=== PATIENT | male | born 1945 | race Caucasian/White ===

== ENCOUNTER → 2020-11-19 | Outpatient (CLI) | payer BC, MEDICARE ==
[2020-11-19 16:34] LABS: Appearance,Urine Clear (Clear); Bilirubin,Urine Negative (Negative); Blood,Urine Negative (Negative); Color,Urine Light Yellow; Glucose,Urine (UA) Negative (Negative); HCT 46.5 % (39.0-53.0); HGB 15.9 gm/dL (13.0-17.5); Ketones,Urine Negative (Negative); Leukocyte Esterase,Urine Negative (Negative); MCH 30.4 pg (25.0-35.0); MCHC 34.1 g/dL (31.0-37.0); MCV 89.3 fL (80.0-100.0); Mean Platelet Volume 8.7; Nitrite,Urine Negative (Negative); PH, Urine 5.5 (5.0-8.0); Platelet Count 190 k/uL (150-450); Protein,Urine Negative (Negative); RBC 5.21 m/uL (4.30-5.90); RDW 13.1 % (11.5-15.5); Specific Gravity,Urine 1.008 (1.001-1.035); Urobilinogen,Urine <2.0 mg/dL (<2.0); WBC 9.1 k/uL (3.8-10.6)
[2020-11-19 16:43] LABS: Albumin 4.8 g/dL (3.5-5.0); Calcium 9.9 mg/dL (8.4-10.2); Partial Thromboplastin Time 25.1 sec (22.0-30.0); Potassium 4.5 mmol/L (3.5-5.1); Prothrombin Time 10.4 sec (9.0-12.0); Total Bilirubin 0.3 mg/dL (0.2-1.3); Total Protein 7.7 g/dL (6.3-8.2)
== END | disposition home or self-care (01) ==
LOC: LABPAT 16:01
PROVIDERS: ATTEND Orthopaedic Surgery
DX: Z01.818 Encounter for other preprocedural examination (principal); Z01.812 Encounter for preprocedural laboratory examination
CPT/HCPCS: 80053; 81003; 85027; 85610; 85730; 86850; 86900; 86901; 87070; 93005

== ENCOUNTER 2020-11-30 13:21 | Day surgery (SDC) | payer MEDICARE, BC ==
[2020-11-24 14:02] VITALS: BMI 27.2
[~2020-11-30 13:21] MED LIST: ACETAMINOPHEN TAB 500 MG TAB PO PRN; DEXAMETHASONE SOD PHOSPHATE 4 MG/ML 1 ML VIAL IV ONE; GABAPENTIN 300 MG CAP PO PRN; HYDROcodone/APAP 7.5-325MG 1 EACH TAB PO PRN; HYDROmorphone 0.2 MG/1 ML SYRINGE IVP PRN; HYDROmorphone 0.5 MG/0.5 ML SYRINGE IVP PRN; LACTATED RINGERS 1,000 ML IV SCH; MAGNESIUM HYDROXIDE 2,400 MG/10 ML CUP PO PRN; MELOXICAM 7.5 MG TAB PO PRN; MIDAZOLAM 2 MG/2 ML VIAL IV PRN; NALOXONE 0.4 MG/ML 1 ML VIAL IV PRN; ONDANSETRON 4 MG/2 ML VIAL IVP ONE; ONDANSETRON 4 MG/2 ML VIAL IVP PRN; ROPIVACAINE/EPI/CLONIDINE/KET 50 ML SYRINGE MISCELLANE PRN; SODIUM CHLORIDE 0.9% 1,000 ML IV SCH; TRANEXAMIC ACID 1,000 MG in SODIUM CHLORIDE 0.9% 100 ML IVPB PRN; fentaNYL (PF) 50 MCG/ML 2 ML AMP IV PRN
[2020-11-30] MEDS ORDERED: ACETAMINOPHEN TAB 500 MG TAB ONE (13:58)
[2020-11-30 14:04] LABS: Glucose,Whole Blood 113 mg/dL (75-99)
[2020-11-30] MEDS ORDERED: HEPARIN SODIUM,PORCINE 10,000 UNIT/ML 1 ML VIAL ONE (15:19)
[2020-11-30] MEDS ORDERED: MIDAZOLAM 2 MG/2 ML VIAL ONE (15:19)
[2020-11-30] MEDS ORDERED: SODIUM CHLORIDE 0.9% 100 ML BAG ONE (15:19)
[2020-11-30] MEDS ORDERED: PROPOFOL 10 MG/ML 20 ML VIAL IV ONE (15:19)
[2020-11-30] MEDS ORDERED: SODIUM CHLORIDE 0.9% IRRIG 1,000 ML BTL IRRIGATION ONE (15:19)
[2020-11-30] MEDS ORDERED: TRANEXAMIC ACID 1,000 MG/10 ML VIAL ONE (15:19)
[2020-11-30] MEDS ORDERED: fentaNYL (PF) 50 MCG/ML 2 ML AMP ONE (15:19)
--- NOTE | 2020-11-30 16:42 | P.OP ---
Date of Procedure: 11/30/20 Preoperative Diagnosis: Severe osteoarthritis left hip Postoperative Diagnosis: Severe osteoarthritis left hip Procedure(s) Performed: Total hip arthroplasty with a direct anterior approach Implants: [employer] Polarstem standard size 7 [employer] R3, 3 hole hemispherical acetabular shell, 54 mm [employer] Reflection 6.5 mm cancellus screw, 20 mm 2 [employer] R3, XLPE 20 acetabular liner [employer] Oxinium femoral head 36 m, -3 All components were press-fit. The articulation is Oxinium on polyethylene. Anesthesia: spinal Surgeon: Jak Dowell Windows Systems Engineer #1: Kari Martins Estimated Blood Loss (ml): 100 Pathology: other (Femoral head) Condition: stable Disposition: PACU Indications for Procedure: After failure of conservative treatment we discussed the surgical and nonsurgical treatment options at length. Patient wishes to proceed with a total hip arthroplasty with a direct anterior approach. Complications specific to this procedure were discussed at length, including but not limited to infection, leg length discrepancy, dislocation, nerve injury, and fracture. Covid-19 was also discussed at length with the patient, and they are aware of the current policies and procedures. The patient was given the option of delaying surgery, but they elect to proceed knowing these risks. Patient is aware of all these complications and informed consent was obtained Operative Findings: The operative findings are consistent with severe osteoarthritis of the left hip Description of Procedure: Patient was seen and evaluated in the preoperative area and the consent was reviewed. The operative site was marked with a skin marker. The patient was then brought to the operating room and given preoperative antibiotics intrave nously. 1 g of Tranexamic acid was also given intravenously. A spinal anesthetic was administered by the anesthesia department. The patient was then placed on the Musella table with the bony prominences well-padded. The hip area was then prepped with a ChloraPrep solution and draped in the usual sterile fashion. A universal timeout was then performed, which confirmed the patient's name, surgical site, ALLERGIES, and procedure being performed on the consent. Next the incision site was located at 1 cm distal to the anterior superior iliac spine along the flexion crease of the left hip. The skin and subcutaneous tissues were sharply incised. Incision was carefully dissected down to the fascia overlying the tensor fascia oneal muscle. This fascia was then incised in line with the incision. Care was taken to stay laterally in order to avoid injuring the lateral femoral cutaneous nerve. Next, using blunt finger dissection, the tensor fascia oneal muscle was dissected off its investing fascia. The muscle was then carefully retracted laterally with a cobra retractor over the lateral neck of the femur. Next, the circumflex vessels were identified and cauterized using the AquaMantis device. The anterior hip capsule was then exposed. The capsule was then opened and an inverted T fashion. Cobra retractors were then placed intracapsularly. The retractors were maintained intracapsular throughout the procedure. The proximal femur was then visualized. A small amount of traction was placed on the leg. The femoral neck was then osteotomized appropriate level above the lesser trochanter. A small wedge of bone was then removed from the remaining femoral head. Next, using a corkscrew the femoral head was removed from the acetabulum. On gross visual inspection, the femoral head had complete loss of articular cartilage and multiple periarticular osteophytes. The femoral head was then measured. Attention was then turned to the acetabulum. The acetabulum was exposed and any remaining labrum was excised. Sequential reaming of the acetabulum was performed using fluoroscopic guidance until there was a good bed of bleeding cancellus bone. When the appropriate size was reached, a trial was then placed. The position and fit of the trial was checked with fluoroscopy. The trial was then removed. Then, using fluoroscopic guidance, the final implant was impacted at 20 of anteversion and 40 of abduction, and fully seated in the acetabulum. 2 screws were then placed in the acetabulum. Again fluoroscopy was used to check position of the screws. Next, the liner was then impacted, with a 20 elevated liner located in the anterior superior quadrant. Component locking was confirmed. Attention was then directed to the femur. With the aid of the Musella table, the femur was externally rotated to approximately 130, extended, and adducted under the opposite leg. A side hook was then placed under the proximal femur, and the side hook elevator was used to elevate the proximal femur while releasing the capsule. Retractors were then placed. A capsular release was performed, as well as a release of the conjoined tendon, which afforded excellent visualizatio n of the proximal femur. Next, a box osteotome was used to lateralize the proximal femur. A pattern hand was then used to locate the femoral canal. Sequential broaching was then performed with appropriate size which afforded excellent fixation in the proximal femur. A trial was then placed with appropriate head and neck, and the hip was gently reduced with the aid of the Musella table. Fluoroscopy was then used to check position of the components, as well as to ensure equal leg lengths. The hip was then gently dislocated and the trials were then removed. Final implants were then impacted and the hip was again reduced. Final fluoroscopic x-rays confirmed that the components were in anatomic position, as well as equal leg lengths. The hip was also taken through range of motion, and found to be stable. The hip was then copiously irrigated with antibiotic solution with pulsatile lavage. The hip was then irrigated with Irrisept solution. The soft tissues were then injected with a ropivacaine solution, which consisted of 246.25 mg of ropivacaine, 0.5 mg of epinephrine, 30 mg of Toradol, 80 g of clonidine, and 48.45 mL of sterile water, for a total of 100 mL of fluid injected. A second dose of 1 g of Tranexamic acid was also given intravenously. Any blood collected by Cell Saver was then returned to the patient at this time. The fascia was then closed with 2-0 strata fix suture. The subcutaneous tissue was closed with 3-0 Vicryl. The subcuticular tissue was closed with 3-0 strata fix suture. The skin was then closed with Exofin skin glue. After the glue and dried, and Optifoam silver impregnated dressing was applied. The patient was then transferred to the recovery room in stable condition. The phlebotomist lab assistant YESICA Grewal was required due to the complexity of surgery, and the need for skilled surgical instrument maker for positioning, draping, exposure, retraction, and closure of the wound.
[2020-11-30 17:19] LABS: Glucose,Whole Blood 166 mg/dL (75-99)
--- NOTE | 2020-11-30 18:23 | XR ---
EXAMINATION TYPE: XR Hip Limited LT DATE OF EXAM: 11/30/2020 COMPARISON: NONE HISTORY: Postop hip surgery TECHNIQUE: Single view FINDINGS: There is left hip prosthesis. Components are in anatomic position. IMPRESSION: No complicating process seen.
--- NOTE | 2020-11-30 18:38 | FL ---
EXAMINATION TYPE: FL guidance operating room DATE OF EXAM: 11/30/2020 FLUOROSCOPY Fluoroscopy time of 18 seconds was used during left hip total arthroplasty.. 2 image/s document/s th e procedure.
--- NOTE | 2020-11-30 18:42 | XR ---
EXAMINATION TYPE: XR Hip Limited LT DATE OF EXAM: 11/30/2020 FLUOROSCOPY Fluoroscopy time of 22 seconds was used during left hip total arthroplasty. 2 image/s document/s the procedure.
[2020-11-30] MEDS ORDERED: LACTATED RINGERS 1,000 ML IV ONE (20:21)
[2020-11-30 20:44] LABS: Glucose,Whole Blood 309 mg/dL (75-99)
[2020-11-30] MEDS ORDERED: INSULIN ASPART (NovoLOG) 100 UNIT/ML VIAL SQ ONE (20:55)
[2020-11-30 22:20] LABS: Glucose,Whole Blood 264 mg/dL (75-99)
[2020-11-30] MEDS: ASPIRIN 325 MG TAB PO SCH (23:50)
[2020-12-01] MEDS ORDERED: SENNOSIDES-DOCUSATE SODIUM 1 EACH TAB PO SCH
[2020-12-01 00:02] VITALS: RESP 20
[2020-12-01 05:44] VITALS: BP 136/62; PULSE 59; TEMP 98
[2020-12-01 05:55] LABS: Basophils % (A) 0 %; Eosinophils % (A) 0 %; HCT 42.6 % (39.0-53.0); Lymphocytes # (A) 1.1 k/uL (1.0-4.8); Lymphocytes % (A) 7 %; MCH 29.3 pg (25.0-35.0); MCHC 32.9 g/dL (31.0-37.0); MCV 89.1 fL (80.0-100.0); Monocytes # (A) 1.1 k/uL (0-1.0); Monocytes % (A) 7 %; Neutrophils # (A) 14.2 k/uL (1.3-7.7); Neutrophils % (A) 86 %; Platelet Count 221 k/uL (150-450); RBC 4.78 m/uL (4.30-5.90); RDW 13.5 % (11.5-15.5); WBC 16.6 k/uL (3.8-10.6)
[2020-12-01 07:06] LABS: Glucose,Whole Blood 175 mg/dL (75-99)
[2020-12-01] MEDS: ASPIRIN 325 MG TAB PO SCH (08:46)
--- NOTE | 2020-12-01 11:38 | P.DS ---
Providers Expected date of discharge: 12/01/20 Attending physician: Jak Dowell Consults: 11/30/20 11:38 Consult Physician Routine Consulting Provider: Frederick Gonzalez Consult Reason/Comments: medical management Do you want consulting provider notified?: Yes Primary care physician: Miguel A Zurita - Discharge Diagnosis(es) (1) Osteoarthritis of left hip Current Visit: Yes Status: Acute (2) S/P total hip arthroplasty Current Visit: Yes Status: Acute Hospital Course: This is a 75-year-old male with known history of degenerative arthritis of the left hip. The patient presented for evaluation as an outpatient. After discussion and consideration patient elects to proceed with total hip arthroplasty. The patient is seen preoperatively by Dr. Dowell and medically cleared for surgery by their primary care physician. Patient is admitted to [facility] on 11/30/20 for total hip arthroplasty. The procedure is performed without complication or sequelae. The patient is doing well postoperatively. Labs and vital signs are stable on day of discharge. On day of discharge patient's hip incision is healing well. There is minimal erythema. There is no drainage noted at this time. There is minimal soft tissue swelling to the hip and thigh. Patient has full foot and ankle motion without difficulty or pain. Calf is soft and nontender to palpation. Neurovascular status to the left lower extremity is intact. Patient is discharged home in good condition. Opioid start talking form is reviewed and signed. Please see med rec for accurate list of home medications. Plan - Discharge Summary Discharge Rx Participant: No New Discharge Prescriptions: New Sennosides [Senokot] 2 tab PO DAILY PRN #60 tablet PRN Reason: Constipation Aspirin 325 mg PO BID #60 tab HYDROcodone/APAP 7.5-325MG [Myrtle 7.5-325] 1 tab PO Q6H PRN #28 tab PRN Reason: Pain No Action Ergocalciferol (Vitamin D2) [Vitamin D2 (2000 Iu)] 25 mcg PO DAILY amLODIPine [Norvasc] 10 mg PO QAM Pravastatin Sodium [Pravachol] 40 mg PO HS Multivit-Min/Iron/Folic/Lutein [Centrum Silver Women Tablet] 1 each PO DAILY L.acidoph,Paracasei, B.lactis [Probiotic] 1 tab PO DAILY Discharge Medication List Ergocalciferol (Vitamin D2) [Vitamin D2 (2000 Iu)] 25 mcg PO DAILY 11/24/20 [History] L.acidoph,Paracasei, B.lactis [Probiotic] 1 tab PO DAILY 11/24/20 [History] Multivit-Min/Iron/Folic/Lutein [Centrum Silver Women Tablet] 1 each PO DAILY 11/24/20 [History] Pravastatin Sodium [Pravachol] 40 mg PO HS 11/24/20 [History] amLODIPine [Norvasc] 10 mg PO QAM 11/24/20 [History] Aspirin 325 mg PO BID #60 tab 11/30/20 [Rx] Sennosides [Senokot] 2 tab PO DAILY PRN #60 tablet 11/30/20 [Rx] HYDROcodone/APAP 7.5-325MG [Myrtle 7.5-325] 1 tab PO Q6H PRN #28 tab 12/01/20 [Rx] Follow up Appointment(s)/Referral(s): [facility], [NON-STAFF] - 1 Week Jak Dowell DO [Doctor of Osteopathic Medicine] - 12/14/20 1:30 pm (patient will see kyle medeiros) Patient Instructions/Handouts: Precautions after Total Joint Replacement Surgery (DC), Joint Replacement Surgery (DC) Activity/Diet/Wound Care/Special Instructions: Weightbearing as tolerated with walker Leave dressing intact. Dressing may be removed by home care nurse in 10 days. May shower with dressing on. Please take aspirin 325 mg twice daily for 30 days to prevent blood clots. Please wear compression stockings during the day until follow-up appointment to help prevent blood clots. May remove at night. Follow-up with [facility] in 2 weeks, please call with any questions or concerns [phone] Discharge Disposition: HOME WITH HOME HEALTH SERVICES
--- NOTE | 2020-12-01 18:53 | CONS ---
CONSULTATION REASON FOR CONSULTATION: Advice regarding diabetes mellitus and other medical issues, requested by [facility]. HISTORY OF PRESENT ILLNESS: This 75-year-old gentleman with a past medical history of diabetes mellitus, hypertension, DJD, history of prostate disorder, history of C difficile, being followed by Dr. Zurita in the outpatient setting, underwent total hip arthroplasty with a direct approach on the left side by Dr. Dowell. The patient tolerated the procedure well. There is no history of any chest pain. No history of palpitation. No nausea, vomiting, diarrhea, fever, rigors or chills at this time. PAST MEDICAL HISTORY: History of diabetes mellitus, hypertension, DJD, history of prostate disorder, history of receiving Moderna vaccine. MEDICATIONS: Pravachol, probiotic, Norvasc, multivitamins, vitamin D2, [place]. ALLERGIES: PARVIZ INHIBITORS, BEE VENOM, LATEX, SULFA. FAMILY HISTORY: History of bladder cancer in the family. SOCIAL HISTORY: No history of smoking. No history of alcohol. REVIEW OF SYSTEMS: ENT: No diminished hearing. No diminished vision. CARDIOVASCULAR SYSTEM: No angina, palpitations. RESPIRATORY SYSTEM: No cough, hemoptysis. GI: No nausea, vomiting. : No dysuria or retention. NERVOUS SYSTEM: No numbness, weakness. ALLERGY/IMMUNOLOGY: No asthma, hayfever. MUSCULOSKELETAL: As mentioned earlier. HEMATOLOGY/ONCOLOGY: As mentioned earlier. ENDOCRINE: Diabetes mellitus. CONSTITUTIONAL: As mentioned earlier. DERMATOLOGY: Negative. RHEUMATOLOGY: Negative. PSYCHIATRY: Negative. PHYSICAL EXAMINATION: Patient alert and oriented x3. The pulse is 59, blood pressure 130/60, respiration 20, temperature 98 degrees, pulse ox 94% on room air. HEENT: Conjunctivae normal. Oral mucosa moist. NECK: No jugular venous distention. No carotid bruit. No lymph node enlargement. CARDIOVASCULAR SYSTEM: S1, S2 muffled. RESPIRATORY SYSTEM: Breath sounds diminished at the bases. No rhonchi. No crackles. ABDOMEN: Soft, non-tender. LEGS: Status post hip arthroplasty. NERVOUS SYSTEM: Higher functions as mentioned earlier. Moves all 4 limbs. No focal motor or sensory deficit. LYMPHATICS: No lymph node palpable in neck, axillae or groin. SKIN: No ulcer, rash, bleeding. JOINTS: No active deforming arthropathy. LABS: WBC 16.7, hemoglobin 14. Glucose noted. ASSESSMENT: 1. Status post left total hip joint arthroplasty. 2. Diabetes mellitus, type 2. 3. Hypertension. 4. Degenerative joint disease. 5. History of Clostridium difficile. 6. History of hernia surgery. 7. Transurethral resection of prostate. 8. FULL CODE. RECOMMENDATIONS AND DISCUSSION: I recommend to continue current medications, continue with the monitoring, symptomatic treatment. Resume the home medications. Accu-Cheks before meals and at bedtime. Monitor blood sugars closely. Also recommend close followup with Dr. Zurita in the outpatient setting. Other than that, DVT prophylaxis. Rest of the recommendations from Orthopedic Surgery. Will follow the patient closely with you. Thank you, Dr. Dowell, for letting us participate in the care of this patient. MMODL / IJN: [id number] /
== END 2020-12-01 11:45 | disposition home health service (06) ==
LOC: OR 13:21 → 5NMEDONC 22:06 → OR 12-01 11:45
PROVIDERS: ATTEND Orthopaedic Surgery
DX: M16.12 Unilateral primary osteoarthritis, left hip (principal); I10 Essential (primary) hypertension; E11.9 Type 2 diabetes mellitus without complications; Z20.822 Contact with and (suspected) exposure to COVID-19; Z79.82 Long term (current) use of aspirin; Z79.84 Long term (current) use of oral hypoglycemic drugs; Z79.899 Other long term (current) drug therapy; Z82.49 Family history of ischemic heart disease and other diseases of the circulatory system; Z88.2 Allergy status to sulfonamides; Z88.8 Allergy status to other drugs, medicaments and biological substances; Z91.030 Bee allergy status
CPT/HCPCS: 87635; 73501; 27130; J1100; J0690; J2405; 85025; 86850; 86891; 86900; 86901